=== PATIENT | male | born 1970 | race Caucasian/White ===

== ENCOUNTER 2021-07-16 05:30 | Outpatient (CLI) | payer OTHER ==
[~2021-07-16] VITALS: Ht 185.5 cm; Wt 75.0 kg
[2021-07-19] MEDS ORDERED: BACL10TA PO (14:05)
[2021-07-19] MEDS ORDERED: LIDO700A45 TP (14:05)
[2021-07-19] MEDS ORDERED: GABA300S2 PO (14:05)
[2021-07-23] MEDS ORDERED: CEPH500C PO (09:09)
[2021-07-23] MEDS ORDERED: ACHD5005 PO (09:09)
== END 2021-07-19 14:44 | disposition home or self-care (01) ==
LOC: PREOP 05:30
PROVIDERS: ATTEND Podiatrist Foot & Ankle Surgery
DX: Z01.818 Encounter for other preprocedural examination (principal)

== ENCOUNTER 2021-07-23 06:08 | Day surgery (SDC) | payer OTHER ==
[2021-07-23] VITALS (10 sets, daily range): BP systolic 120–140; BP diastolic 82–96
[~2021-07-23] VITALS: Ht 185.5 cm; Wt 75.0 kg
[~2021-07-23 06:08] MED LIST: BACL10TA PO; GABA300S2 PO; LIDO700A45 TP
[2021-07-23] MEDS ORDERED: ceFAZolin 2 GM IV Premixed 50 ML ONE (06:29)
[2021-07-23] MEDS ORDERED: ceFAZolin INJECTION 1,000 MG ONE (06:41)
[2021-07-23] MEDS ORDERED: ceFAZolin INJECTION 1,000 MG VIAL IV ONE (06:45)
[2021-07-23] MEDS ORDERED: LIDOCAINE 1% INJ 20 ML VIAL ONE (07:14)
[2021-07-23] MEDS ORDERED: BUPIVACAINE 0.5% 30 ML (SENSORCAINE) VIAL ONE (07:14)
--- NOTE | 2021-07-23 07:36 | Progress Note-Pre Operative ---
Pre-Operative Progress Note H&P Reviewed The H&P was reviewed, patient examined and no changes noted. Date Seen by Provider: Jul 23, 2021 Time Seen by Provider: 07:36 Date H&P Reviewed: Jul 23, 2021 Time H&P Reviewed: 07:36 Pre-Operative Diagnosis: Soft tissue lesion left foot TUNDE BONILLA DPM Jul 23, 2021 07:36
[2021-07-23] MEDS ORDERED: MIDAZOLAM 2 MG/2 ML (VERSED) VIAL ONE (07:38)
[2021-07-23] MEDS ORDERED: fentaNYL INJ 100 MCG/2 ML AMP ONE (07:38)
[2021-07-23] MEDS ORDERED: ONDANSETRON 4 MG/2 ML (SDV) Z0FRAN ONE (08:20)
[2021-07-23] MEDS ORDERED: proPOfol 200 MG/20 ML (DIPRIVAN) VIAL IV ONE (08:20)
[2021-07-23] MEDS ORDERED: LIDOCAINE PF 2% 5 ML (XYLOCAINE) VIAL ONE (08:20)
--- NOTE | 2021-07-23 09:06 | Progress Note-Post Operative ---
Post-Operative Progess Note Surgeon (s)/Brimming Machine Operator (s) Surgeon TUNDE BONILLA DPM Brimming Machine Operator: None Pre-Operative Diagnosis Soft tissue lesion left foot Post-Operative Diagnosis Same Procedure & Operative Findings Date of Procedure 07/23/21 Procedure Performed/Findings Excision of deep soft tissue lesion (Fibroma) Anesthesia Type General Estimated Blood Loss Estimated blood loss (mL): Minimal Specimens/Packing Specimens Removed Plantar Fibroma, left TUNDE BONILLA DPM Jul 23, 2021 09:05
[2021-07-23] MEDS ORDERED: CEPH500C PO (09:09)
[2021-07-23] MEDS ORDERED: ACHD5005 PO (09:09)
[2021-07-23] MEDS ORDERED: PROMETHAZINE INJ 25 MG/ML (PHENERGAN) AMP IVP ONE (09:15)
[2021-07-23] MEDS ORDERED: HYDROcodone/APAP 5 MG/325 MG (LORTAB) TAB PO PRN (09:15)
[2021-07-23] MEDS ORDERED: ONDANSETRON 4 MG/2 ML (SDV) Z0FRAN IVP PRN (09:15)
[2021-07-23] MEDS ORDERED: LACTATED RINGERS 1,000 ML IV SCH (09:15)
[2021-07-23] MEDS ORDERED: morphine INJ 10 MG/ML 1ML (SYR OR VIAL) IVP ONE (09:15)
[2021-07-23] MEDS ORDERED: fentaNYL INJ 100 MCG/2 ML AMP IVP ONE (09:15)
--- NOTE | 2021-07-23 11:49 | Anesthesia-General Post-Op ---
General Patient Condition Mental Status/LOC: Same as Preop Cardiovascular: Satisfactory Nausea/Vomiting: Absent Respiratory: Satisfactory Pain: Controlled Complications: Absent Post Op Complications Complications None Follow Up Care/Instructions Patient Instructions None needed. Anesthesia/Patient Condition Patient Condition Patient is doing well, no complaints, stable vital signs, no apparent adverse anesthesia problems. No complications reported per nursing. ALBAN SIDDIQUI CRNA Jul 23, 2021 11:49
--- NOTE | 2021-07-23 13:39 | OPERATIVE REPORT ---
DATE OF SERVICE: 07/23/2021 SURGEON: Nallely Arguello DPM PREOPERATIVE DIAGNOSIS: Plantar fibromatosis, left foot. POSTOPERATIVE DIAGNOSIS: Plantar fibromatosis, left foot. PROCEDURE: Excision of soft tissue lesion from plantar fascia, left foot with application of GraftJacket. WOUND CLASS: Clean. ANESTHESIA: General. HEMOSTASIS: Pneumatic thigh tourniquet at 250 mmHg. INDICATIONS: This 51-year-old male presents complaining of a recurrence of the soft tissue lesion to the left foot. He has previously had plantar fibromatosis removed and a portion of returned. Conservative therapy is met with unsatisfactory results and the patient is agreeable to surgical intervention after risks and complications were discussed at length. No guarantees were extended to the patient and he is willing to proceed. DESCRIPTION OF PROCEDURE: The patient was brought back to the operating table, placed in secure supine position. Appropriate timeout was performed. A pneumatic thigh tourniquet was placed on the left lower extremity over several layers padding. The left foot was anesthetized to the plantar aspect of the medial band of the plantar fascia. Utilizing 8 mL of 1:1 mixture of 1% Xylocaine, 0.5% Marcaine. Those were plain. The left foot was then prepped and draped in normal sterile manner. The left foot was then elevated, allowed to exsanguinate after which the tourniquet was inflated to 250 mmHg. Attention was then directed to the inferior aspect of the left foot where an incision of approximately 3 mm was made from distal medial to lateral proximal and again another 3 cm from distal lateral to proximal medial. This flap was then carefully extended along the subcutaneous tissue exposing the hypertrophic portion of the plantar fascia. Copious amounts of scar tissue were noticed in this area consistent with reoccurrence of a plantar fibromatosis. The dissection was combination of sharp and blunt; however, it was mainly sharp due to the amount of scar tissue already noted in the area. The thickened medial band of the plantar fascia was identified and removed sharply with careful use of dissecting scissors. Great care was taken to preserve any vital neurovascular structures. However, this was very difficult with the amount of scar tissue that was present. The specimen that was removed was approximately 2.5 cm in length, 2 cm in width, sent for gross and microscopic evaluation. The wound was rather flushed with copious amounts of normal saline and application of GraftJacket implant, a thin 0.4 to 1 mm was then applied into the wound and secured in place utilizing 4-0 Vicryl stitch. The closure was then performed in layers with subcutaneous closure with 4-0 Vicryl and skin closure with 4-0 Prolene in a horizontal mattress and simple interrupted type stitch. Postoperative injection consisted of 10 mL of 0.5% Marcaine injected in a local infusion to the surgical site as well as for mg of dexamethasone. Postoperative dressing consisted of Betadine soaked Adaptic, sterile 4 x 4, sterile Kerlix all secured with Coban wrap. The patient tolerated the anesthesia and procedure well, was transported from the operating room to the recovery room with vital signs stable and vascular status intact to all digits of the left foot. He is to be absolutely nonweightbearing on the left lower extremity and he was given a prescription for Keflex and hydrocodone. We will see him in the office in 10 days' period of time or sooner if necessary. Job ID: [id number] DocumentID: [id number] Dictated Date: 07/23/2021 09:16:59 Shop Coordinator Date: 07/23/2021 13:39:29 Dictated By: TETO GARCIAS
== END 2021-07-23 10:50 | disposition home or self-care (01) ==
LOC: SDC 06:08
PROVIDERS: ATTEND Podiatrist Foot & Ankle Surgery
DX: M72.2 Plantar fascial fibromatosis (principal); M19.90 Unspecified osteoarthritis, unspecified site; I10 Essential (primary) hypertension; Z79.899 Other long term (current) drug therapy; Z87.891 Personal history of nicotine dependence
CPT/HCPCS: 87081